=== PATIENT | female | born 1965 | race Asian ===

== ENCOUNTER → 2018-01-14 | Outpatient (CLI) | payer OTHER | END | disposition home or self-care (01) | LOC: C.RDSM 13:38 | PROVIDERS: ATTEND Family Medicine Sports Medicine | DX: M25.511 Pain in right shoulder (principal) ==

== ENCOUNTER → 2018-02-04 | Outpatient (CLI) | payer OTHER ==
--- NOTE | 2018-02-04 13:39 | MAMMOGRAPHY REPORT ---
UNILATERAL RIGHT DIGITAL DIAGNOSTIC MAMMOGRAM: 02/04/2018 CLINICAL HISTORY: Callback from screening mammogram for right breast calcifications. Family history o f breast cancer. TECHNIQUE: The study was acquired using full field digital technology and interpreted from soft copy. Spot magnification right CC and ML views were obtained. COMPARISON: Comparison is made to exam dated: 01/12/2018 mammogram - [facility]. BREAST COMPOSITION: The tissue of right breast is heterogeneously dense, which may obscure small mass es. FINDINGS: Spot magnification views of the right breast demonstrate a small cluster of coarse heterogeneous calc ifications in the right 12:00 breast, measuring approximately 6 mm. The calcifications are stable on spot magnification views compared to the December 2016 exam. Additionally, the calcifications appear mo re coarsened and therefore more benign-appearing compared to the 2015 exam. The calcifications are c onsidered benign given the interval coarsening and felt to represent a degenerating fibroadenoma or o ther benign process. Other scattered punctate benign-appearing calcifications are seen on the spot m agnification views. IMPRESSION: ACR BI-RADS CATEGORY 2: BENIGN 1. 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 2. The patient reports she undergoes annual screening breast MRI in addition to annual mammography d ue to her family history of breast cancer. The patient will be due for follow-up breast MRI in 2018, which could be performed at this facility. There is no mammographic evidence of malignancy. A 1 year screening mammogram is recommended.( [id number]) The patient has been verbally notified of the results. Some breast cancers are not detected with mammography. A negative mammographic report should not karen y biopsy if a clinically suggestive mass is present. Madison Charles M.D. /:02/04/2018 13:02:58 Chip Loft Worker: Fiorella Dailey, [facility] letter sent: Normal 1/2 BI-RADS Code: ACR BI-RADS Category 2: Benign
== END | disposition home or self-care (01) ==
LOC: C.MAMM 12:33
PROVIDERS: ATTEND Internal Medicine
DX: R92.0 Mammographic microcalcification found on diagnostic imaging of breast (principal)